=== PATIENT | male | born 1995 | race Caucasian/White ===

== ENCOUNTER 2025-06-17 16:40 | Emergency (ER) | payer OTHER ==
[~2025-06-17] VITALS: Ht 182.9 cm; Wt 81.6 kg
[2025-06-17 17:21] LABS: PLATELET COUNT (AUTO) 178 K/uL (150-450); RED BLOOD CELL COUNT(AUTO) 4.84 MIL/uL (4.5-6.0); RED CELL DISTRIBUTION WIDTH 13.0 % (11.5-15.0); WHITE BLOOD COUNT (AUTO) 3.9 K/uL (4.3-11.0)
[2025-06-17 17:32] LABS: CALCIUM, SERUM 8.6 mg/dL (8.5-10.1); CREATININE 1.3 mg/dL (0.6-1.3); SODIUM SERUM 140 mmol/L (136-145); UREA NITROGEN, BLOOD 19 mg/dL (7-18)
[2025-06-17 17:50] LABS: ASPARTATE AMINOTRANSFERASE 20 U/L (15-37); TOTAL PROTEIN, SERUM 7.7 g/dL (6.4-8.2)
[2025-06-17 17:53] LABS: ALCOHOL, BLOOD < 3 mg/dL (0-10)
[2025-06-17 18:13] LABS: APPEARANCE,URINE CLEAR (CLEAR); BLOOD, URINE TRACE-INTA Ery/uL (NEGATIVE); LEUKOCYTE ESTERASE ,URINE NEGATIVE (NEGATIVE); NITRITE, URINE NEGATIVE (NEGATIVE); UGLUCOSE NEGATIVE (NEGATIVE)
[2025-06-17 18:20] LABS: AMPHETAMINE, URINE NEGATIVE (NEGATIVE); BARBITURATE, URINE NEGATIVE (NEGATIVE); BENZODIAZEPINE, URINE NEGATIVE (NEGATIVE); COCCAINE, URINE NEGATIVE (NEGATIVE); OPIATE, URINE NEGATIVE (NEGATIVE)
[2025-06-17 18:35] LABS: CANNABINOID, URINE POSITIVE (NEGATIVE)
[2025-06-17 18:39] LABS: ADD URINE CULTURE NO; SQUAMOUS EPITHELIAL CELL,UR None Seen /HPF (None Seen)
[2025-06-17] MEDS: IV NS 0.9% 1,000 ML BAG IV ONE (19:44)
[2025-06-18 00:48] VITALS: BP 124/67; TEMP 98.2; O2SAT 97
== END 2025-06-18 00:49 | disposition home or self-care (01) ==
LOC: ER 16:58
DX: F12.929 Cannabis use, unspecified with intoxication, unspecified (principal); R07.89 Other chest pain; Z79.899 Other long term (current) drug therapy
CPT/HCPCS: 99285; 96360; 93005; 85025; 80048; 80076; 81001; 36415; 84484; 80143; 80320; 80307; J7030; G0480